=== PATIENT | female | born 1990 | race Caucasian/White ===

== ENCOUNTER 2017-12-24 02:13 | Emergency (ER) | payer BC, MEDICAID, SELFPAY ==
[2017-12-24 02:15] VITALS: BP 128/74; PULSE 80; RESP 18; TEMP 37.3; O2SAT 97; BMI 29.6
--- NOTE | 2017-12-24 02:30 | ED.DEP ---
ED Disposition - Plan for ED Patient: Chief Complaint: Anxiety Instructions: ED Stress React Referrals: Town Doctor,Out of [Primary Care Provider] -
--- NOTE | 2017-12-24 02:31 | ED.DCSUM_ITS ---
- ER Visit Summary Date of Service: 12/24/17 Chief Complaint: I can't talk History of Present Illness: The patient is a 27 F who presents with stuttering and twitching. 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 She states this was attributed to posttraumatic stress disorder. About 2 hours ago she began to have stuttering and twitching in her shoulders. She denies any other recent illness such as fever chest pain shortness of breath nausea vomiting diarrhea. She does report that she had a headache earlier today which improved with Excedrin. Physical Examination: Afebrile vitals are normal Patient resting comfortably in no distress when I entered the room. When he began to take a history she began to twitch her shoulders and arms and stutter her speech Alert, oriented, no focal or lateralizing neurological deficits Heart regular rate and rhythm Lungs clear Abdomen soft Test Results: None indicated Emergency Department Course and Treatment: I believe this is likely related to anxiety. She is clearly not having any type of true seizure activity. She states she improved with anxiolytics when she had this before. She was given a dose of Vistaril and discharged home. Treatment Plan: [] Disposition: Discharge Impression: Anxiety This note was generated with [employer] dictation software. It may contain incorrect words, spelling, and punctuation that were not noted in review of the chart prior to signing ED Disposition - Plan for ED Patient: Chief Complaint: Anxiety Referrals: Florinda Doctor,Out of [Primary Care Provider] -
[2017-12-24] MEDS: hydrOXYzine PAM 25 MG Capsule PO (02:35)
[2017-12-24 02:42] VITALS: BP 123/77; PULSE 71; RESP 19; O2SAT 97
== END 2017-12-24 02:47 | disposition home or self-care (01) ==
PROVIDERS: Emergency Provider Emergency Medicine
DX: F41.9 Anxiety disorder, unspecified (principal)
CPT/HCPCS: 99283

== ENCOUNTER 2018-01-04 22:10 | Emergency (ER) | payer BC, MEDICAID, SELFPAY ==
[2018-01-04 22:12] VITALS: BP 117/78; PULSE 80; RESP 18; TEMP 37.3; O2SAT 99; BMI 29.1
[2018-01-04 22:25] VITALS: BP 135/85; PULSE 72; RESP 18; O2SAT 99
--- NOTE | 2018-01-04 22:27 | NURSING ---
pt has been having seizures since december 23 and having intermittent periods of seizure activity. very lethargic after. these seizures also causing h/a.
--- NOTE | 2018-01-04 22:37 | CT_ITS ---
STUDY: CTA OF THE BRAIN REASON FOR EXAM: Female, 27 years old. MULT. SEIZURES SINCE LAST TUESDAY,HEADACHE AND DIZZINESS NOW RADIATION DOSAGE (If Supplied By Facility): CTDIvol = ( 29.36 ) mGy, DLP = ( 1635.68 ) mGycm TECHNIQUE: CT angiography was performed with a multi-detector CT scanner. Data acquisition was obtained from the skull base through the vertex following intravenous administration of 100 ml of Isovue-370. MIP images were reconstructed from the axial data set. Post-processing of the angiographic images was performed, with multiplanar reformation and 3D reconstruction. Individualized dose optimization techniques were used for this CT. COMPARISON: None. FINDINGS: Normal bilateral petrous carotid arteries. Normal right cavernous carotid artery with a normal supraclinoid bifurcation. Normal left cavernous carotid artery with a normal supraclinoid bifurcation. Normal right A1 segments of the anterior cerebral artery. Normal left A1 segments of the anterior cerebral artery. Normal intact anterior communicating artery (ACOM). Normal bilateral A2 segments of the anterior cerebral arteries. Normal right M1 and M2 segments of the middle cerebral arteries, with a normal M1 bifurcation. Normal left M1 and M2 segments of the middle cerebral arteries, with a normal M1 bifurcation. Normal right posterior communicating artery (PCOM). There is a persistent origin of the left posterior cerebral artery with absence of the posterior communicating artery (PCOM). Normal bilateral vertebral arteries. Normal basilar artery with a normal basilar bifurcation. The visualized bilateral superior cerebellar (SCA) arteries are normal. Normal bilateral P1, P2 and visualized P3 segments of the posterior cerebral arteries. There is no demonstrated aneurysm of the [place] of [place]. There is no demonstrated abnormality of the visualized brain. CT/CTA Head W/WO Contrast IMPRESSION: No CTA evidence of significant intracranial arterial pathology. Electronically Signed: Lázaro Davila MD at 0:10 EDT Tel , Service support ,
--- NOTE | 2018-01-04 22:37 | CT_ITS ---
STUDY: CTA NECK WITH CONTRAST REASON FOR EXAM: Female, 27 years old. MULT. SEIZURES SINCE LAST TUESDAY,HEADACHE AND DIZZINESS RADIATION DOSAGE (If Supplied By Facility): CTDIvol = ( 29.36 ) mGy, DLP = ( 1635.68 ) mGycm TECHNIQUE: CT angiography with multi-detector data acquisition was performed from the aortic arch to the skull base following intravenous administration of 100ML ml of Isovue 370 contrast. MIP images were reconstructed from the axial data set. Post-processing of the angiographic images was performed, with multiplanar reformation and 3D reconstruction. Individualized dose optimization techniques were used for this CT. COMPARISON: None. FINDINGS: AORTIC ARCH: Normal visualized aortic arch. Normal origins of the brachiocephalic, left common carotid, and left subclavian arteries. RIGHT CAROTID ARTERIES: Normal right common carotid artery (CCA). Normal right common carotid bulb. Normal origin of the right internal carotid (ICA) artery without a hemodynamically significant stenosis. Normal visualized cervical portion of the right internal carotid artery. Normal origin of the right external carotid artery (ECA). LEFT CAROTID ARTERIES: Normal left common carotid artery (CCA). Normal left common carotid bulb. Normal origin of the left internal carotid (ICA) artery without a hemodynamically significant stenosis. Normal visualized cervical portion of the left internal carotid artery. Normal origin of the left external carotid artery (ECA). VERTEBRAL ARTERIES: Normal bilateral vertebral arteries. CT/CTA Neck W/WO Contrast IMPRESSION: Normal bilateral cervical carotid and vertebral arteries. Electronically Signed: Lázaro Davila MD at 0:14 EDT Tel , Service support ,
--- NOTE | 2018-01-04 22:40 | ED.VISSUMM ---
- ER Visit Summary Date of Service: 01/04/18 Chief Complaint: Seizure History of Present Illness: The patient is a 27 F presents stating that she has been having multiple seizures. This started a week ago. Her friends state that she has had intermittent episodes of shaking and stuttering of her speech. She has had no trauma or fall during these episodes. She states she was diagnosed with seizures a few years ago but then was taken off medication after one week due to the thought that it was related to PTSD. She states that she typically has a mild headache associated with this. She is not currently on any migraine or seizure medications. She does not have a primary care physician or neurologist. Physical Examination: Vitals are stable. Patient is afebrile. Alert no acute distress. HEENT exam is unremarkable. Neck is supple. No meningismus Lungs are clear and equal bilaterally. Heart is regular rate and rhythm. Abdomen is soft nontender nondistended. Extremities are unremarkable. Skin is warm and dry. No focal neurologic deficit. Normal strength and sensation Remainder of exam is unremarkable. Emergency Department Course and Treatment: CBC, chemistries unremarkable. HCG negative. She was given Compazine and Benadryl IV for her headache. CTA head and neck show no acute process. She is resting comfortably on reevaluation. She had no seizure activity in the emergency department. She has been diagnosed with pseudoseizures related to anxiety and PTSD in the past. She was referred to neurology for a second opinion. She is advised to return to ED for any worsening complaints. Disposition: Discharge home Impression: Reported seizure This note was generated with [employer] dictation software. It may contain incorrect words, spelling, and punctuation that were not noted in review of the chart prior to signing ED Disposition - Plan for ED Patient: Chief Complaint: Seizure Referrals: Care Physician,No Primary [Primary Care Provider] -
[2018-01-04 22:52] LABS: Absolute Lymphocyte Count 2.52 X10^3/ul (0.83-4.51); Absolute Neutrophil Count 6.6 X10^3/uL (2.0-7.7); Basophil# 0.02 X10^3/uL; Basophil% 0.2 % (0-1); Eosinophil# 0.13 X10^3/uL; Eosinophils% 1.3 % (0-5); Hematocrit 41.6 % (37-47); Hemoglobin 13.5 g/dl (12.0-15.0); Lymphocyte # 2.52 X10^3/ul (4.0); Lymphocyte % 25.5 % (19-41); Mean Corp Hgb Conc 32.5 g/gl (32-36); Mean Corpuscular Hgb 30.1 pg (27.0-32.0); Mean Corpuscular Volume 92.7 fL (81-99); Mean Platelet Vol. 10.8 fl (6.2-12.0); Monocyte# 0.58 X10^3/uL; Monocyte% 5.9 % (0-10); Neutrophil # 6.64 X10^3/uL (2.7-7.7); Platelet Count 236 K/mm3 (150-450); RBC Distribution Width CV 13.3 % (11.6-14.6); RBC Distribution Width SD 44.6 fl (35.1-43.9); Red Blood Count 4.49 M/mm3 (4.2-5.4); White Blood Count 9.9 K/mm3 (4.4-11.0)
[2018-01-04 22:53] LABS: POSITIVE COUNT NO; POSITIVE DIFFERENTIAL NO; POSITIVE MORPHOLOGY NO
[2018-01-04] MEDS: DiphenhydrAMINE 50 MG/ML Syringe 25 MG IV (22:59)
[2018-01-04] MEDS: proCHLORPERazine 10 MG/2 ML Vial IV (22:59)
[2018-01-04 23:07] LABS: Anion Gap 8 (5-15); BUN 8 mg/dL (7-18); Calcium,Total 9.6 mg/dL (8.5-10.1); Chloride 105 mmol/L (98-107); EST Glomerular Filtration Rate 93 mL/min (>60); Est Glom Filt Rate - Afr Amer 112 mL/min (>60); Estimated Creatinine Clearance 108.44 ml/min; Glucose 85 mg/dL (74-106); Potassium 3.6 mmol/L (3.5-5.1); Sodium Level 142 mmol/L (136-145)
[2018-01-04 23:11] LABS: Pregnancy, Serum, hCG Quali. NEGATIVE Negative (0-9 Nonpreg)
[2018-01-05 00:54] VITALS: BP 108/62; PULSE 56; RESP 15; O2SAT 99
--- NOTE | 2018-01-05 01:19 | ED.DEP ---
ED Disposition - Plan for ED Patient: Chief Complaint: Seizure Instructions: ED Seizure Recurrent Referrals: Care Physician,No Primary [Primary Care Provider] - Carla Kidd MD [STAFF PHYSICIAN] -
[2018-01-05 01:25] VITALS: BP 126/78; PULSE 71; RESP 15; O2SAT 99
== END 2018-01-05 01:33 | disposition home or self-care (01) ==
LOC: ED 22:40
PROVIDERS: Emergency Provider Emergency Medicine
DX: R56.9 Unspecified convulsions (principal)
CPT/HCPCS: 70496; 70498; 80048; 84703; 85025; 96374; 96375; 99283; J7040; Q9967; A4216

== ENCOUNTER 2019-04-25 19:17 | Emergency (ER) | payer OTHER, SELFPAY ==
[2019-04-25 19:18] VITALS: BP 106/58; PULSE 75; RESP 16; TEMP 36.7; O2SAT 99; BMI 24.7
--- NOTE | 2019-04-25 20:22 | EKG12_ITS ---
Test Reason : Blood Pressure : / mmHG Vent. Rate : 060 BPM Atrial Rate : 060 BPM P-R Int : 126 ms QRS Dur : 078 ms QT Int : 406 ms P-R-T Axes : 051 034 032 degrees QTc Int : 406 ms Normal sinus rhythm Normal ECG Confirmed by ISADORA SAMANIEGO, NAYE ([id number]), editorial assistant BARBIE PEREZ ([id number]) on 05/01/2019 1:12:52 PM Referred By: Confirmed By:KEILY MUIR MD
--- NOTE | 2019-04-25 20:31 | ED.RN ---
NO OLD EKG
[2019-04-25 20:40] LABS: Absolute Lymphocyte Count 1.76 X10^3/uL (0.83-4.51); Absolute Neutrophil Count 6.3 X10^3/uL (2.0-7.7); Basophil# 0.05 X10^3/uL; Basophil% 0.6 % (0-1); Eosinophil# 0.06 X10^3/uL; Eosinophils% 0.7 % (0-5); Hematocrit 41.4 % (37-47); Hemoglobin 13.6 g/dL (12.0-15.0); Lymphocyte # 1.76 X10^3/ul (4.0); Mean Corp Hgb Conc 32.9 g/dL (32-36); Mean Corpuscular Hgb 30.9 pg (27.0-32.0); Mean Corpuscular Volume 94.1 fL (81-99); Mean Platelet Vol. 11.2 fl (6.2-12.0); Monocyte# 0.58 X10^3/uL; Monocyte% 6.6 % (0-10); NRBC Flagged by Analyzer 0 % (0-5); Neutrophil % 71.8 % (47-70); Platelet Count 240 K/mm3 (150-450); RBC Distribution Width CV 13.4 % (11.6-14.6); RBC Distribution Width SD 46.7 fl (35.1-43.9); White Blood Count 8.8 K/mm3 (4.4-11.0)
--- NOTE | 2019-04-25 20:40 | RAD_ITS ---
STUDY: X-RAY CHEST REASON FOR EXAM: Female, 28 years old. Syncope TECHNIQUE: PA and lateral views of the chest. COMPARISON: None. FINDINGS: Cardiac silhouette unremarkable. Pulmonary vascularity unremarkable. Aorta unremarkable. No focal airspace opacities. No pleural effusions. Upper abdomen unremarkable. Osseous structures intact. No pneumothorax. RAD/Chest PA and Lateral IMPRESSION: No acute cardiopulmonary findings Electronically Signed: Carlos A Sharp, at 21:09 EST Tel , Service support ,
[2019-04-25 20:48] LABS: Internal QC Validated? YES +Cl - CLEAR BKGD; Pregnancy, Serum, hCG Quali. NEGATIVE Negative
[2019-04-25 20:54] LABS: Anion Gap 7 (5-15); BUN 12 mg/dL (7-18); BUN/Creat Ratio 17.8 RATIO (10-20); Calcium,Total 9.2 mg/dL (8.5-10.1); Chloride 109 mmol/L (98-107); Creatinine, Serum 0.67 mg/dL (0.55-1.02); EST Glomerular Filtration Rate 112 mL/min (>60); Est Glom Filt Rate - Afr Amer 135 mL/min (>60); Estimated Creatinine Clearance 128.36 ml/min; Glucose 100 mg/dL (74-106); Potassium 3.3 mmol/L (3.5-5.1); Sodium Level 140 mmol/L (136-145)
--- NOTE | 2019-04-25 21:13 | ED.VISSUMM ---
- ER Visit Summary Date of Service: 04/25/19 Chief Complaint: Syncope History of Present Illness: The patient is a 28 F who states that earlier tonight she was sitting on the toilet urinating when she states she must have passed out. She denies hurting herself in the fall. She states she has been seeing a compound mixer through [facility]. 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 No cause for syncope has been found. She denies any prodrome prior to the event. Physical Examination: Afebrile vital signs stable Gen: Well-nourished well-developed Head: Normocephalic atraumatic Eyes: Perrl EOMI ENT: TMs clear no rhinorrhea moist mucous membranes Neck: Supple no lymphadenopathy no JVD nontender CVS: Regular rate rhythm no murmurs normal S1-S2 Respiratory: No distress clear to auscultation bilaterally chest nontender Abdomen: Soft nontender nondistended normal bowel sounds no masses Back: Nontender Extremity: Nontender no edema Skin: Normal color no rash Neuro: alert orientated ?3 CN II-XII intact normal strength sensation reflexes gait cerebellar Psych: Normal affect normal mood Test Results: CBC BMP troponin negative. Did note a slightly low potassium at 3.3. EKG is sinus at 60. Chest x-ray negative. Emergency Department Course and Treatment: Patient will be discharged home with care to monitor. I encouraged her to follow-up with her compound mixer. Impression: Syncope This note was generated with [employer] dictation software. It may contain incorrect words, spelling, and punctuation that were not noted in review of the chart prior to signing ED Disposition - Plan for ED Patient: Disposition: Home or Assisted Living Instructions: SYNCOPE, Unk Cause Additional Instructions: Follow-up with your compound mixer
[2019-04-25 21:31] VITALS: BP 96/58; PULSE 76; RESP 18; O2SAT 96
== END 2019-04-25 21:32 | disposition home or self-care (01) ==
PROVIDERS: Emergency Provider Emergency Medicine
DX: R55 Syncope and collapse (principal)
CPT/HCPCS: 71046; 80048; 84484; 84703; 85025; 93005; 99284; J7030; A4216

== ENCOUNTER 2019-04-29 21:25 | Emergency (ER) | payer OTHER, SELFPAY ==
[2019-04-29 21:27] VITALS: BP 115/63; PULSE 94; RESP 18; TEMP 36.7; O2SAT 100; BMI 24.4
--- NOTE | 2019-04-29 22:26 | ED.DCSUM_ITS ---
History of Present Illness Chief Complaint: Syncope Informant: Patient Narrative: Patient stated she has been diagnosed with vasovagal syncope and has had a work- up for this in the past. She has seen a process design engineer. She had echocardiogram which was normal as well as a tilt table test which she said was positive. She was worked up for pots in the past as well. She is on no medications. She is a history of pseudoseizures. She stated that she is been sitting recently and passing out. Friends witnessed this. There is no seizure activity. She had a negative work-up in the ER just a few days ago including lab work EKG. She does not drive cars. She denies any other symptoms. She had negative CT scans of her head and arteries last year. Past Medical History - Allergies and Home Meds Allergies/Adverse Reactions: Allergies Penicillins Adverse Reaction (Verified 04/29/19 21:29) Rash Primary Care Physician: Hosea Smith MD [Primary Care Provider] - Prior records reviewed: Yes Past Medical History: - - No seizure, vasovagal syncope Surgical History: noncontributory Lives: With Family Smoking Status: Never smoker Alcohol: None Drugs: None Review of Systems General: Denies: Chills, Fever, Sweats Eyes: Denies: Visual changes - bilaterally, Diplopia ENT: Denies: Rhinorrhea, Sore throat Cardiovascular: Denies: Chest pain, Palpitations Respiratory: Denies: Dyspnea, Cough, Dyspnea on exertion Gastrointestinal: Denies: Abdominal pain, Nausea, Vomiting, Diarrhea, Melena, Hematochezia Genitourinary: Denies: Dysuria, Hematuria, Frequency Musculoskeletal: Denies: Back pain, Extremity Pain Skin: Denies: Rash, Wounds Neurological: Denies: Headache, Weakness, Numbness Physical Exam Vital Signs/Narrative: Vital Signs Temp Pulse Resp BP Pulse Ox 04/29/19 21:27 98.0 F 94 18 115/63 100 General: Well nourished, Well developed, No Acute Distress Head: Normocephalic, Atraumatic Eyes: Perrl, EOMI ENT: Moist mucous membranes, No rhinorrhea Neck: Supple, Nontender Cardiovascular: Regular rate, Regular rhythm, No murmurs Respiratory: No distress, CTA bilaterally, Chest nontender Abdomen: Soft, Nontender, Nondistended, Normal bowel sounds Back: Nontender, Normal Inspection Extremities: Nontender, No edema Skin: Normal color, No rash Neurological: Alert, Oriented x3, Cranial nerves II-XII grossly intact, Normal Strength, Normal Sensation Psychological: Normal affect, Normal Mood Diagnostic/Tx/Re-eval - Medical Decision Making Reassured. Normal vital signs. At this time I think she has vagal syncope when she had a complete work-up. I do not feel needs to be repeated. She is to call her process design engineer tomorrow follows up follow-up as an outpatient ED Disposition - Plan for ED Patient: Disposition: Home or Assisted Living Instructions: SYNCOPE, Vasovagal Referrals: Hosea Smith MD [Primary Care Provider] -
--- NOTE | 2019-04-29 22:33 | ED.RN ---
SHORTLY AFTER BEING PLACED IN THE EXAM ROOM PT'S FRIEND CAME OUT STATING SHE PASSED OUT AGAIN. PT WAS FOUND TO BE SITTING IN THE BED WITH HEAD TILTED TO THE SIDE. PT WAS SITTING UPRIGHT WITH NO DISTRESS OR SLOUCHING NOTED. ATTEMPTED TO LIFT PTS HEAD AND SHE RESISTED MOVING HER HEAD. LEFT ARM WAS LIFTED AND PT SLOWLY DROPPED IT BACK TO HER SIDE INSTEAD OF IN HER LAP WHERE IT WOULD HAVE FALLEN IF PT WAS UNCONSCIOUS. DOWNWARD STERNAL RUB PERFORMED LIGHTLY AND PT IMMEDIATELY LIFTED HER HEAD AND OPENED HER EYES.
== END 2019-04-29 22:38 | disposition home or self-care (01) ==
PROVIDERS: Emergency Provider Emergency Medicine; Family Provider Family Medicine; PCP Family Medicine
DX: R55 Syncope and collapse (principal); Z88.0 Allergy status to penicillin
CPT/HCPCS: 99282

== ENCOUNTER 2019-05-07 09:07 | Emergency (ER) | payer OTHER, SELFPAY ==
[2019-05-07 09:08] VITALS: BP 102/62; PULSE 67; RESP 16; TEMP 37; O2SAT 99; BMI 23.6
--- NOTE | 2019-05-07 09:28 | EKG12_ITS ---
Test Reason : SYNCOPE Blood Pressure : / mmHG Vent. Rate : 062 BPM Atrial Rate : 062 BPM P-R Int : 142 ms QRS Dur : 078 ms QT Int : 386 ms P-R-T Axes : 043 034 031 degrees QTc Int : 391 ms Normal sinus rhythm Normal ECG Confirmed by HARMONY SAMANIEGO, PIA ([id number]), rewrite editor NOAM MONIQUE ([id number]) on 05/09/2019 11:31:26 AM Referred By: ROQUE Confirmed By:PIA ANTUNEZ MD
--- NOTE | 2019-05-07 09:28 | ED.DCSUM_ITS ---
History of Present Illness Chief Complaint: Seizure Informant: Patient, Cte Teacher Narrative: Patient states she has had increased seizure activity for the last 1 to 2 weeks, saw her neurologist Dr. Abernathy, who added a new medication to her topiramate, however she has not been able to get to the pharmacy to pick it up yet. She is still taking her topiramate and has been compliant with her medication. She denies any drug use, recent illness, or specific sleep deprivation. Her typical seizures is tonic activity occasional clonic, but she does not lose consciousness. She is aware throughout them. They are set off by fireworks at times, but no obvious triggers other than those and no fireworks over the weekend. She also has syncopal episodes daily that have been diagnosed as vasovagal syncope, and this morning she had one. She usually is sitting down when she has them and recovers uneventfully, today she was standing and fell forward, and she thinks she hit her face on the floor as she collapsed and it is a little sore but she otherwise feels back to normal. She states she never comes to the hospital for these since they happen all the time, however her landlord and roommate witnessed it today and were freaked out. She states she feels fine as she usually does after she awakens from 1 of these episodes. - Past Medical History (1) Epileptic seizures Status: Chronic Past Medical History - Allergies and Home Meds Allergies/Adverse Reactions: Allergies Penicillins Adverse Reaction (Verified 04/29/19 21:29) Rash Primary Care Physician: Hosea Smith MD [Primary Care Provider] - Surgical History: noncontributory Smoking Status: Never smoker Review of Systems General: Reports: - - syncope. Denies: Chills, Fever, Sweats Eyes: Denies: Visual changes - bilaterally, Diplopia ENT: Reports: - - nasal/mid-forehead soreness. Denies: Rhinorrhea, Sore throat Cardiovascular: Denies: Chest pain, Palpitations Respiratory: Denies: Dyspnea, Cough, Dyspnea on exertion Gastrointestinal: Denies: Abdominal pain, Nausea, Vomiting, Diarrhea, Melena, Hematochezia Genitourinary: Denies: Dysuria, Hematuria, Frequency Musculoskeletal: Denies: Neck pain, Back pain, Swelling, Extremity Pain Skin: Denies: Rash, Wounds Neurological: Reports: - - seizures. see HPI.. Denies: Headache, Weakness, Numbness Physical Exam Vital Signs/Narrative: Vital Signs Temp Pulse Resp BP Pulse Ox 05/07/19 09:08 98.6 F 67 16 102/62 99 Inital Vital Signs reviewed: Yes General: Well nourished, Well developed, No Acute Distress Head: Normocephalic, Atraumatic Eyes: Perrl, EOMI ENT: Moist mucous membranes, No rhinorrhea, - - No evidence of facial trauma. No forehead, nasal bridge, midface or zygomatic arch tenderness bilaterally. No pain with extraocular movements or entrapment. No epistaxis. No intraoral injury or trismus.. Negative for: Sinus tenderness Neck: Supple, Nontender Cardiovascular: Regular rate, Regular rhythm, No murmurs Respiratory: No distress, CTA bilaterally, Chest nontender Abdomen: Soft, Nontender, Nondistended, Normal bowel sounds Back: Nontender, Normal Inspection Extremities: Nontender, No edema. Negative for: Calf Tenderness Skin: Normal color, No rash, No Trauma Neurological: Alert, Oriented x3, Cranial nerves II-XII grossly intact, Normal Strength, Normal Sensation, Normal Gait Psychological: Normal affect, Normal Mood Diagnostic/Tx/Re-eval - Rhythm Strip Rhythm Strip: Sinus Rhythm Rate: 60 Ectopy: None - EKG Initial EKG Interpretation: Sinus Rhythm, No Acute Injury Pattern - Medical Decision Making EKG unremarkable. Her vital signs are stable. She is well-appearing. She has been having the symptoms of feeling a little spacey for the last couple weeks and saw a couple different specialist, I was able to finally talk to her neurologist Dr. Irizarry. He remembers the patient. She was just prescribed Midodrin, not an antiepileptic. She does had a video EEG that confirmed she is having nonepileptic seizures, which is consistent with her symptoms of not losing consciousness during these episodes. Additionally, she just had a positive tilt table test with her fish bait processing supervisor at [facility], which is why she was prescribed the Midodrin. I will give her a dose and allow her to be discharged home to pickling grader her prescription and she is comfortable with that plan. ED Disposition - Plan for ED Patient: Disposition: Home or Assisted Living Diagnosis: Recurrent syncope Instructions: HYPOTENSION, Orthostatic Referrals: Hosea Smith MD [Primary Care Provider] - Doctor,Your [STAFF PHYSICIAN] - As Needed Additional Instructions: evaporator supervisor your prescription for Midodrin, your new medication.
--- NOTE | 2019-05-07 09:36 | NURSING ---
PAGED DR CADE THROUGH HIS OFFICE.
--- NOTE | 2019-05-07 10:40 | NURSING ---
CALLED DR CADE'S OFFICE. TALKED TO MILTON, SHE WILL PAGE SINCE HE'S AT [facility] AND NOT RETURNING TO THE OFFICE
--- NOTE | 2019-05-07 10:55 | NURSING ---
DR CADE FOR DR NEVAREZ
[2019-05-07] MEDS: Midodrine HCl 5 MG Tablet 10 MG PO (11:28)
[2019-05-07 11:29] VITALS: BP 124/60; PULSE 72; RESP 16; O2SAT 99
== END 2019-05-07 11:32 | disposition home or self-care (01) ==
PROVIDERS: Emergency Provider Emergency Medicine; Family Provider Family Medicine; PCP Family Medicine
DX: R55 Syncope and collapse (principal); G40.909 Epilepsy, unspecified, not intractable, without status epilepticus
CPT/HCPCS: 93005; 99284